=== PATIENT | female | born 2005 | race Two or more races ===

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

== ENCOUNTER 2025-02-15 18:31 | Day surgery (SDC) | payer OTHER ==
[2025-02-15 19:19] VITALS: BMI 30.2
[2025-02-15] MEDS ORDERED: hydrALAZINE 20 MG/ML VIAL SLOW IVP PRN (19:30)
[2025-02-15 19:56] LABS: Glucose, Urine (Dipstick) Normal (Negative); Leukocyte 500 (Negative); Protein, Urine (Dipstick) 15 mg/dl (Neg-Trace); Specific Gravity, Urine 1.020 (1.005-1.030)
[2025-02-15 20:27] LABS: Bacteria/HPF 2+ HPF (None Seen); CAUTI Indications for Culture Pregnancy; RBC/HPF 0-3 HPF (0-3)
[2025-02-15 20:28] LABS: Urine Culture Reflex Yes Yes
[2025-02-15] MEDS: Cephalexin 500 MG CAP PO SCH (21:11)
== END 2025-02-15 21:15 | disposition home or self-care (01) ==
LOC: CSHLD/OP 18:31
PROVIDERS: ATTEND Obstetrics & Gynecology
DX: O21.2 Late vomiting of pregnancy (principal); O99.891 Other specified diseases and conditions complicating pregnancy; R35.0 Frequency of micturition; Z3A.29 29 weeks gestation of pregnancy; Z79.899 Other long term (current) drug therapy
CPT/HCPCS: 81001; 87086; Q0162

== ENCOUNTER 2025-04-09 18:15 | Day surgery (SDC) | payer OTHER | END 2025-04-09 21:30 | disposition home or self-care (01) | LOC: CSHLD/OP 18:15 | PROVIDERS: ATTEND Family Medicine | DX: O99.891 Other specified diseases and conditions complicating pregnancy (principal); R10.30 Lower abdominal pain, unspecified; Z3A.36 36 weeks gestation of pregnancy; Z79.899 Other long term (current) drug therapy | CPT/HCPCS: 99283 ==